=== PATIENT | female | born 1985 | race Caucasian/White ===

== ENCOUNTER → 2024-10-31 13:07 | Outpatient (BNV) | payer OTHER, SELFPAY | PROVIDERS: PCP Internal Medicine; Referring Provider Internal Medicine; Visit Provider Internal Medicine | DX: E61.1 Iron deficiency (principal) | CPT/HCPCS: 99204 ==

== ENCOUNTER 2024-11-07 14:13 | Outpatient (AMB) | payer OTHER, SELFPAY ==
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
== END 2024-11-07 16:20 | disposition home or self-care (01) ==
LOC: HO.HUSH 14:13
PROVIDERS: PCP Internal Medicine; Visit Provider Urology
DX: R10.9 Unspecified abdominal pain (principal); N13.30 Unspecified hydronephrosis
CPT/HCPCS: 99204

== ENCOUNTER → 2024-11-07 14:13 | Outpatient (BNVA) | payer OTHER, SELFPAY | PROVIDERS: PCP Internal Medicine; Visit Provider Urology | DX: R10.9 Unspecified abdominal pain (principal); N13.30 Unspecified hydronephrosis | CPT/HCPCS: 81003; 99202 ==